=== PATIENT | female | born 1980 | race Hispanic/Latino ===

== ENCOUNTER 2018-09-23 15:00 | Emergency (ER) | payer SELFPAY ==
[2018-09-23 15:49] LABS: Bilirubin Negative (Negative); Blood, Urine Trace (Negative); Glucose, Urine (Dipstick) Negative (Negative); Leukocyte Moderate (Negative); Nitrite Negative (Negative); Protein, Urine (Dipstick) 30 mg/dL (Neg-Trace); Specific Gravity, Urine 1.015 (1.005-1.030); Urobilinogen 0.2 mg/dL (0.2-1.0)
[2018-09-23 15:50] LABS: Bacteria/HPF Rare-Few HPF (None Seen); Clarity Cloudy (Clear)
== END 2018-09-23 16:27 | disposition home or self-care (01) ==
LOC: MADERS 15:00
DX: N39.0 Urinary tract infection, site not specified (principal)
CPT/HCPCS: 81003; 81015; 87086; 99284